=== PATIENT | female | born 1965 | race Caucasian/White ===

== ENCOUNTER 2024-02-15 06:45 | Day surgery (SDC) | payer OTHER, SELFPAY ==
[2023-12-27 13:48] VITALS: BMI 34.9
[2024-02-02 13:56] VITALS: BMI 33.3
--- NOTE | 2024-02-14 14:28 | PM.HPGS ---
History of Present Illness History of Present Illness Consent: Risks, benefits, and alternatives have been discussed and questions answered. Patient agrees to proceed with procedure. Chief complaint: Screening for neoplasm of colon Narrative: Brynn Real is a 58 year old female who is referred for colon cancer screening. Review of Systems Review of Systems: All systems reviewed & are unremarkable except as noted in HPI and below PMFSH Past Medical History Medical History Breast cancer Calcification of coronary artery Depression History of gastroesophageal reflux (GERD) Hypertension Pre-diabetes Smoker Vitamin D deficiency Surgical History Surgical History History of lumpectomy of left breast Family History Family History Father Alcoholism Heart disease Mother Hypertension Heart disease Sibling Diabetes mellitus Social History Social History Years smoked: 20 Smoking status: Current every day smoker Tobacco type: cigarettes Alcohol intake: never Substance use: never Substance use type: does not use Lack of Transportation: No Lack of Food: Never True Current Housing: I Have Housing Concerned About Future Housing: No Difficulty Paying Gas/Electric Bills: No Difficulty Paying for Meds: No Currently Unemployed: No Education: High School Diploma/GED Difficulty w/ Childcare or Family Care: No Living arrangements: alone Occupation/Education: occupation Gender identity (if verbalized by the patient): Female Spiritual care concerns: No Meds Home Medications and Allergies Home Medications Medication Instructions Recorded Confirmed Type cholecalciferol (vitamin D3) 50 50 mcg PO DAILY 01/20/23 02/15/24 History mcg (2,000 unit) capsule rosuvastatin 20 mg tablet 20 mg PO DAILY #90 tabs 11/29/23 02/15/24 Rx bupropion HCl 150 mg 24 hr tablet, 150 mg PO QAM 12/20/23 02/15/24 History extended release hydrochlorothiazide 12.5 mg tablet 12.5 mg PO DAILY #90 tabs 12/20/23 02/15/24 Rx pantoprazole 40 mg tablet,delayed 40 mg PO QHS #90 tabs 01/31/24 02/15/24 Rx release Allergies Allergy/AdvReac Type Severity Reaction Status Date / Time No Known Allergies Allergy Mild Verified 02/15/24 07:21 Exam Resp: Auscultation: clear to auscultation bilaterally Cardio: Rate: regular rate Rhythm: regular rhythm GI: GI Palp: Yes Soft to palpation and No Tenderness to palpation present (GI) Assessment and Plan Assessment and plan (1) Colon cancer screening: Code(s): Z12.11 - Encounter for screening for malignant neoplasm of colon Status: Acute Assessment and Plan: Colonoscopy with possible biopsy or polypectomy or cautery or injection of substances.
[2024-02-15 07:34] VITALS: BP 137/85; PULSE 73; RESP 18; TEMP 36.8; O2SAT 97; BMI 33.8
[2024-02-15] MEDS: LACTATED RINGERS 1,000 ML 150 ML IV CONT (07:38)
--- NOTE | 2024-02-15 07:57 | WPDANESEPPF ---
Anes - Initial Pre Proc Eval Procedure: Operation Date: 02/15/24 08:30 Proposed Procedures p Screening Colonoscopy - Santy Ortiz MD Date/Time: 02/15/24 07:57 Surgeon: Santy Ortiz MD Pre Op Diagnosis: Screening for neoplasm of colon Patient Data Age: 58 Gender: F Height: 1.65 m Weight: 92.35 kg Last Vital Signs Temp 36.8 C 02/15/24 07:34 Pulse 73 02/15/24 07:34 Resp 18 02/15/24 07:34 BP 137/85 02/15/24 07:34 Pulse Ox 97 02/15/24 07:34 O2 Del Method Room Air 02/15/24 07:34 Allergies Allergy/AdvReac Type Severity Reaction Status Date / Time No Known Allergies Allergy Mild Verified 02/15/24 07:21 Home Medications Medication Instructions Recorded Confirmed Type cholecalciferol (vitamin D3) 50 50 mcg PO DAILY 01/20/23 02/15/24 History mcg (2,000 unit) capsule rosuvastatin 20 mg tablet 20 mg PO DAILY #90 tabs 11/29/23 02/15/24 Rx bupropion HCl 150 mg 24 hr tablet, 150 mg PO QAM 12/20/23 02/15/24 History extended release hydrochlorothiazide 12.5 mg tablet 12.5 mg PO DAILY #90 tabs 12/20/23 02/15/24 Rx pantoprazole 40 mg tablet,delayed 40 mg PO QHS #90 tabs 01/31/24 02/15/24 Rx release Patient hx anesthesia problems: none Family hx anesthesia problems: none Results Review: All pre-operative results and documents have been reviewed as part of the pre-operative evaluation. [facility] Past Medical History Medical History Breast cancer Calcification of coronary artery Depression History of gastroesophageal reflux (GERD) Hypertension Pre-diabetes Smoker Vitamin D deficiency Surgical History Surgical History History of lumpectomy of left breast Family History Family History Father Alcoholism Heart disease Mother Hypertension Heart disease Sibling Diabetes mellitus Social History Social History Years smoked: 20 Smoking status: Current every day smoker Tobacco type: cigarettes Alcohol intake: never Substance use: never Substance use type: does not use Lack of Transportation: No Lack of Food: Never True Current Housing: I Have Housing Concerned About Future Housing: No Difficulty Paying Gas/Electric Bills: No Difficulty Paying for Meds: No Currently Unemployed: No Education: High School Diploma/GED Difficulty w/ Childcare or Family Care: No Living arrangements: alone Occupation/Education: occupation Gender identity (if verbalized by the patient): Female Spiritual care concerns: No Anes - Eval Final PreProcedure Day of Procedure 02/15/24 07:57 Patient weight: obese Heart: regular rate and rhythm Lungs: clear to auscultation Airway: Mallampati scale class II Neurological: alert and oriented Last oral intake: >/= 8 hours ASA classification: III Emergent: no Anesthetic plan: proceed Anesthesia type and monitoring: general GIVS and standard monitoring Results Review: All pre-operative results and documents have been reviewed as part of the pre-operative evaluation. Informed Consent: The patient's anesthetic plan and its attendant risks and benefits were discussed with the patient/family/POA. Questions were solicited and answers provided to the satisfaction of the patient/family/POA.
[2024-02-15 08:32] VITALS: BP 91/43; PULSE 62; RESP 16; O2SAT 98
[2024-02-15 08:42] VITALS: BP 117/58; PULSE 58; RESP 16; O2SAT 100
[2024-02-15 08:52] VITALS: BP 129/64; PULSE 57; RESP 16; O2SAT 100
--- NOTE | 2024-02-15 09:03 | WPDANESPN ---
Anes - Prog Note Post-Op Date/Time: 02/15/24 09:03 Cardiovascular status: normal Respiratory status: normal Airway patency: baseline Mental status: baseline Post-Op hydration status: normal Vital Signs: Last Vital Signs Temp 36.8 C 02/15/24 07:34 Pulse 57 L 02/15/24 08:52 Resp 16 02/15/24 08:52 BP 129/64 02/15/24 08:52 Pulse Ox 100 02/15/24 08:52 O2 Del Method Room Air 02/15/24 08:52 Pain Score (VAS): 0/10 I/O: Intake & Output 02/14/24 02/15/24 02/15/24 23:59 07:59 15:59 Intake Total 500 Balance 500 Patient Feedback: Patient satisfied with anesthetic care.
== END 2024-02-15 09:04 | disposition home or self-care (01) ==
PROVIDERS: PCP Physician Assistant Medical; Visit Provider Internal Medicine Gastroenterology
PROC: 0DJD8ZZ Inspection of Lower Intestinal Tract, Via Natural or Artificial Opening Endoscopic (ICD-10-PCS; CPT 45378; principal; 2024-02-15 08:30)
DX: Z12.11 Encounter for screening for malignant neoplasm of colon (principal); D12.5 Benign neoplasm of sigmoid colon; K57.30 Diverticulosis of large intestine without perforation or abscess without bleeding
CPT/HCPCS: 45385

== ENCOUNTER 2024-02-15 07:00 | Outpatient (NON) | payer OTHER, SELFPAY | END 2024-02-15 07:01 | disposition home or self-care (01) | PROVIDERS: PCP Physician Assistant Medical; Visit Provider Internal Medicine Gastroenterology | DX: Z12.11 Encounter for screening for malignant neoplasm of colon (principal) | CPT/HCPCS: 88305 ==